=== PATIENT | female | born 1980 | race Caucasian/White ===

== ENCOUNTER 2022-01-10 21:13 | Emergency (ER) | payer OTHER ==
[~2022-01-10] VITALS: Ht 175.3 cm; Wt 121.1 kg
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
[2022-01-10] MEDS ORDERED: HYDROCODONE/APAP 5/325MG TABLET PO ONE (22:30)
[2022-01-10] MEDS ORDERED: HYDROCODONE/APAP 5/325MG TABLET ONE (22:35)
--- NOTE | 2022-01-10 23:01 | NUR ---
XRAY AT BEDSIDE
--- NOTE | 2022-01-10 23:21 | NUR ---
Patient discharged to home in stable condition. Written and verbal after care instructions given. Patient verbalizes understanding of instruction.
[2022-01-10 23:28] VITALS: BP 133/77
== END 2022-01-10 23:22 | disposition home or self-care (01) ==
LOC: ER 21:16
DX: S70.01XA Contusion of right hip, initial encounter (principal); E66.01 Morbid (severe) obesity due to excess calories; J45.909 Unspecified asthma, uncomplicated; Z68.39 Body mass index [BMI] 39.0-39.9, adult; Z90.49 Acquired absence of other specified parts of digestive tract; V00.131A Fall from skateboard, initial encounter; Y93.51 Activity, roller skating (inline) and skateboarding; Y92.89 Other specified places as the place of occurrence of the external cause; Y99.8 Other external cause status
CPT/HCPCS: 73502